=== PATIENT | female | born 1960 | race Caucasian/White ===

== ENCOUNTER 2018-02-18 09:02 | Emergency (ER) | payer MEDICAID, OTHER ==
[~2018-02-18] VITALS: Ht 175.3 cm; Wt 128.4 kg
[~2018-02-18 09:02] MED LIST: ALBU8HFA4 INH; AMOX-430 PO; ASPI-612 PO; ATEN50TA PO; CHRO1TAB6 PO; DIAZ5TAB PO; ERGO500040 PO; FLEXERIL PO; FOLI1TAB16 PO; HYDR-548 PO; MECL-102 PO; NORT50CA2 PO; OMEG1CAP18 PO; PROBIOTIC1 EACH PO; PROM5SYR PO; PSEU-231 PO; UBID1CAP PO; [UNRECOGNIZED DRUG - REMARK]
[2018-02-18] MEDS ORDERED: KETOROLAC TROMETHAMINE 30 MG INJ IVP ONE (09:45)
[2018-02-18] MEDS ORDERED: diphenhydrAMINE 50 MG/1 ML VIAL IV ONE (09:45)
[2018-02-18] MEDS ORDERED: IV NORMAL SALINE 1000 ML BAG IV ONE (09:45)
[2018-02-18] MEDS ORDERED: DIAZEPAM 2 MG TABLET PO ONE (09:45)
[2018-02-18] MEDS ORDERED: PROCHLORPERAZINE EDISYLATE 10 MG/2 ML VIAL IV ONE (09:45)
--- NOTE | 2018-02-18 10:06 | NUR ---
bossman 33, oj given and dr Logan made aware
--- NOTE | 2018-02-18 10:30 | NUR ---
multiple attemps to draw blood and insert IV unsuccessful
--- NOTE | 2018-02-18 10:41 | NUR ---
patient anxious, valium given po / still no IV access
[2018-02-18] MEDS ORDERED: DIAZEPAM 5 MG TABLET ONE (10:42)
[2018-02-18 10:51] LABS: BASOPHILS # (AUTO) 0.1 K/uL (0.0-8.0); BASOPHILS % (AUTO) 1.2 % (0.0-2.0); EOSINOPHILS # (AUTO) 0.2 K/uL (0.0-0.7); EOSINOPHILS % (AUTO) 1.5 % (0.0-7.0); HEMATOCRIT 46.2 % (31.2-41.9); LYMPHOCYTES # (AUTO) 3.9 K/uL (20.0-40.0); LYMPHOCYTES % (AUTO) 38.4 % (20.5-51.5); MEAN CORPUSCULAR HEMOGLOBIN 31.5 uug (24.7-32.8); MEAN CORPUSCULAR HGB CONC 35 g/dL (32.3-35.6); MEAN CORPUSCULAR VOLUME 90.9 fL (75.5-95.3); MONOCYTES # (AUTO) 0.7 K/uL (2.0-10.0); MONOCYTES % (AUTO) 6.6 % (0.0-11.0); NEUTROPHILS # (AUTO) 5.3 K/uL (1.8-8.9); NEUTROPHILS % (AUTO) 52.3 % (38.5-71.5); PLATELET COUNT (AUTO) 342 K/uL (179-408); RED BLOOD CELL COUNT(AUTO) 5.08 MIL/uL (3.63-4.92); WHITE BLOOD COUNT (AUTO) 10.1 K/uL (3.8-11.8)
[2018-02-18 10:55] LABS: CREATININE 0.8 mg/dL (0.6-1.3); POTASSIUM 3.9 mmol/L (3.5-5.1)
[2018-02-18 11:00] LABS: BILIRUBIN,DIRECT 0.1 mg/dL (0.0-0.2); BILIRUBIN,TOTAL 0.5 mg/dL (0.2-1.0); TOTAL PROTEIN, SERUM 8.2 g/dL (6.4-8.2)
--- NOTE | 2018-02-18 11:01 | NUR ---
back to room from radiology dept. head ct was done. upon arrival from Radiology, patient verbalized she was having TIA symptoms while in radiology dept
[2018-02-18] MEDS ORDERED: diphenhydrAMINE 50 MG/1 ML VIAL ONE (11:18)
[2018-02-18] MEDS ORDERED: PROCHLORPERAZINE EDISYLATE 10 MG/2 ML VIAL ONE (11:18)
[2018-02-18] MEDS ORDERED: KETOROLAC TROMETHAMINE 30 MG INJ ONE (11:19)
--- NOTE | 2018-02-18 12:32 | NUR ---
repeat accucheck 107. patient resting at present
[2018-02-18 14:23] VITALS: BP 125/72
--- NOTE | 2018-02-18 16:16 | NUR ---
ambulated to bathroom, then sent to waiting room to wait for her family to pick her up
== END 2018-02-18 16:17 | disposition home or self-care (01) ==
LOC: ER 09:02
DX: R07.9 Chest pain, unspecified (principal); R42 Dizziness and giddiness; R51 Headache; F41.9 Anxiety disorder, unspecified; I10 Essential (primary) hypertension; F17.200 Nicotine dependence, unspecified, uncomplicated; Z86.73 Personal history of transient ischemic attack (TIA), and cerebral infarction without residual deficits; Z88.2 Allergy status to sulfonamides; Z88.8 Allergy status to other drugs, medicaments and biological substances; Z91.048 Other nonmedicinal substance allergy status; Z88.7 Allergy status to serum and vaccine
CPT/HCPCS: 36415; 70030-TC; 70450; 71045; 85025; 85730; 93005; A4663; J0780; J1200; J1885

== ENCOUNTER 2018-06-03 19:02 | Emergency (ER) | payer MEDICAID ==
[~2018-06-03] VITALS: Ht 175.3 cm; Wt 128.8 kg
[~2018-06-03 19:02] MED LIST changes: +HYDR-4354 PO; -HYDR-548 PO
[2018-06-03] MEDS ORDERED: MORP15TA7 PO (19:34)
[2018-06-03] MEDS ORDERED: ASPI-605 PO (19:34)
[2018-06-03] MEDS ORDERED: DOCU250C14 PO (19:34)
[2018-06-03] MEDS ORDERED: TRAZ-182 PO (19:34)
[2018-06-03] MEDS ORDERED: PROM25TA15 PO (19:34)
[2018-06-03] MEDS ORDERED: TIZA2CAP7 PO (19:34)
[2018-06-03] MEDS ORDERED: TIZA4TAB4 PO (19:34)
[2018-06-03] MEDS ORDERED: CHOL20004 PO (19:34)
[2018-06-03 21:05] LABS: *BILIRUBIN,URIN NEGATIVE (NEGATIVE); *BLOOD, URINE Trace-lysed (NEGATIVE); *CLARITY,URINE CLEAR (CLEAR); *COLOR,URINE YELLOW (YELLOW); *KETONES,URINE NEGATIVE (NEGATIVE); *UROBILINOGEN,URINE 0.2 E.U./dl (NORMAL); LEUKOCYTE ESTERASE ,URINE NEGATIVE (NEGATIVE); NITRITE, URINE NEGATIVE (NEGATIVE); PH,URINE 5.5 (5.0-8.0); UGLUCOSE NEGATIVE (NEGATIVE)
[2018-06-03 21:17] LABS: BACTERIA,URINE FEW /HPF (NONE SEEN); RBC,URINE 0-3 /HPF (0-3); SQUAMOUS EPITHELIAL CELL,UR FEW /HPF (NONE SEEN); WBC,URINE 0-3 /HPF (0-3)
[2018-06-03] MEDS ORDERED: HYDROCODONE/APAP 10-325 MG TABLET ONE (21:56)
[2018-06-03] MEDS: HYDROCODONE/APAP 10-325 MG TABLET PO ONE (21:58)
[2018-06-03] MEDS: PROMETHAZINE HCL 25 MG TABLET PO PRN (21:58)
--- NOTE | 2018-06-04 00:37 | NUR ---
Patient discharged to home in stable conditon. Written and verbal after care instructions given. Patient verbalizes understanding of instructions.
== END 2018-06-04 00:38 | disposition home or self-care (01) ==
LOC: ER 19:05
DX: M75.21 Bicipital tendinitis, right shoulder (principal); K76.0 Fatty (change of) liver, not elsewhere classified; R60.9 Edema, unspecified; N31.9 Neuromuscular dysfunction of bladder, unspecified; I10 Essential (primary) hypertension; F17.200 Nicotine dependence, unspecified, uncomplicated; Z86.73 Personal history of transient ischemic attack (TIA), and cerebral infarction without residual deficits; Z90.49 Acquired absence of other specified parts of digestive tract; Z88.8 Allergy status to other drugs, medicaments and biological substances; Z88.2 Allergy status to sulfonamides; Z91.041 Radiographic dye allergy status; Z79.82 Long term (current) use of aspirin; Z79.899 Other long term (current) drug therapy
CPT/HCPCS: 87086; A4663

== ENCOUNTER 2018-08-23 17:46 | Emergency (ER) | payer MEDICAID ==
[~2018-08-23] VITALS: Ht 175.3 cm; Wt 113.4 kg
[~2018-08-23 17:46] MED LIST changes: -ALBU8HFA4 INH; -AMOX-430 PO; +ASPI-605 PO; -ASPI-612 PO; +CHOL20004 PO; -CHRO1TAB6 PO; +DOCU250C14 PO; -ERGO500040 PO; -FLEXERIL PO; +MORP15TA7 PO; -NORT50CA2 PO; +PROM25TA15 PO; -PROM5SYR PO; -PSEU-231 PO; +TIZA2CAP7 PO; +TIZA4TAB5 PO; +TRAZ-182 PO; -[UNRECOGNIZED DRUG - REMARK]
[2018-08-23] MEDS ORDERED: PROMETHAZINE VC PO (18:07)
[2018-08-23] MEDS ORDERED: ALBU8.5H8 IH (18:07)
--- NOTE | 2018-08-23 18:14 | NUR ---
PT A/OX4, PRESENTS TO THE ER C/O SOB X 1 MONTH, BUT HAS BEEN WORSENING. PT WAS SEEN BY HER PCP YESTERDAY (08/22/18). PT DOES NOT APPEAR TO BE IN ANY APPARENT DISTRESS AT THIS TIME. MULTIPLE COMPLAINTS: COUGH, THROAT PAIN, BILATERAL EAR PAIN. PT DENIES C/P, DIZZINESS, HEADACHE, DIZZINESS.
--- NOTE | 2018-08-23 18:52 | NUR ---
JAYLEN MURRIETA AT BEDSIDE FOR MSE.
[2018-08-23] MEDS ORDERED: ALBUTEROL SULFATE 2.5 MG/3 ML NEBU NEB ONE (19:15)
[2018-08-23] MEDS ORDERED: IPRATROPIUM BROMIDE 0.5 MG/2.5 ML NEBU NEB ONE (19:15)
[2018-08-23] MEDS ORDERED: IV NORMAL SALINE 1000 ML BAG IV ONE (19:15)
[2018-08-23] MEDS ORDERED: IPRATROPIUM BROMIDE 0.5 MG/2.5 ML NEBU ONE (19:19)
[2018-08-23] MEDS ORDERED: ALBUTEROL SULFATE 2.5 MG/3 ML NEBU ONE (19:19)
--- NOTE | 2018-08-23 19:25 | NUR ---
RT AT BEDSIDE.
[2018-08-23 19:30] LABS: BASOPHILS % (AUTO) 0.6 % (0.0-2.0); EOSINOPHILS # (AUTO) 0.1 K/uL (0.0-0.7); EOSINOPHILS % (AUTO) 1.5 % (0.0-7.0); HEMATOCRIT 39.6 % (31.2-41.9); HEMOGLOBIN 13.7 g/dL (10.9-14.3); LYMPHOCYTES # (AUTO) 2.6 K/uL (20.0-40.0); LYMPHOCYTES % (AUTO) 31.8 % (20.5-51.5); MEAN CORPUSCULAR HEMOGLOBIN 30.4 uug (24.7-32.8); MEAN CORPUSCULAR HGB CONC 35 g/dL (32.3-35.6); MEAN CORPUSCULAR VOLUME 87.7 fL (75.5-95.3); MONOCYTES # (AUTO) 0.7 K/uL (2.0-10.0); MONOCYTES % (AUTO) 8.3 % (0.0-11.0); NEUTROPHILS # (AUTO) 4.7 K/uL (1.8-8.9); NEUTROPHILS % (AUTO) 57.8 % (38.5-71.5); PLATELET COUNT (AUTO) 354 K/uL (179-408); RED BLOOD CELL COUNT(AUTO) 4.51 MIL/uL (3.63-4.92); WHITE BLOOD COUNT (AUTO) 8.1 K/uL (3.8-11.8)
[2018-08-23 19:37] LABS: CREATININE 0.7 mg/dL (0.6-1.3); POTASSIUM 3.6 mmol/L (3.5-5.1)
--- NOTE | 2018-08-23 20:17 | NUR ---
JAYLEN MURRIETA AT BEDSIDE FOR PT UPDATE.
--- NOTE | 2018-08-23 20:30 | NUR ---
Patient discharged to home in stable conditon. Written and verbal after care instructions given. Patient verbalizes understanding of instructions. PT D/C W/ ALL BELONGINGS. PT SELF-AMBULATED W/O DIFFICULTY. 22G IV ACCESS IN L FOREARM REMOVED PRIOR TO D/C - INNER CANNULA INTACT.
[2018-08-23 20:32] VITALS: BP 126/60
== END 2018-08-23 20:34 | disposition home or self-care (01) ==
LOC: ER 17:50
DX: J40 Bronchitis, not specified as acute or chronic (principal); E86.0 Dehydration; I10 Essential (primary) hypertension; F17.200 Nicotine dependence, unspecified, uncomplicated; Z86.73 Personal history of transient ischemic attack (TIA), and cerebral infarction without residual deficits; Z90.49 Acquired absence of other specified parts of digestive tract; Z90.89 Acquired absence of other organs; Z88.2 Allergy status to sulfonamides; Z91.048 Other nonmedicinal substance allergy status; Z88.8 Allergy status to other drugs, medicaments and biological substances; Z79.899 Other long term (current) drug therapy; Z79.82 Long term (current) use of aspirin
CPT/HCPCS: 36415; 71045; 85025; 85730; 86403; 87070; A4663; J3590; J7030

== ENCOUNTER 2018-12-06 11:02 | Emergency (ER) | payer MEDICAID ==
[~2018-12-06] VITALS: Ht 175.3 cm; Wt 113.4 kg
[~2018-12-06 11:02] MED LIST changes: +ALBU8.5H8 IH; -MORP15TA7 PO; +PROMETHAZINE VC PO; +TIZA4TAB4 PO; -TIZA4TAB5 PO
[2018-12-06] MEDS ORDERED: HYDROCODONE/APAP 10-325 MG TABLET PO ONE (12:00)
[2018-12-06] MEDS ORDERED: HYDROCODONE/APAP 5-325MG TABLET ONE (12:01)
[2018-12-06] MEDS ORDERED: HYDROCODONE/APAP 5-325MG TABLET PO ONE (13:00)
--- NOTE | 2018-12-06 13:06 | NUR ---
Patient discharged to home in stable conditon. Written and verbal after care instructions given. Patient verbalizes understanding of instructions.pt walks in steady gait.
[2018-12-06 13:08] VITALS: BP 131/81
== END 2018-12-06 13:09 | disposition home or self-care (01) ==
LOC: ER 11:02
DX: S63.501A Unspecified sprain of right wrist, initial encounter (principal); M54.2 Cervicalgia; I10 Essential (primary) hypertension; G89.29 Other chronic pain; M54.9 Dorsalgia, unspecified; F17.200 Nicotine dependence, unspecified, uncomplicated; Z90.49 Acquired absence of other specified parts of digestive tract; Z88.2 Allergy status to sulfonamides; Z88.8 Allergy status to other drugs, medicaments and biological substances; Z79.82 Long term (current) use of aspirin; Z79.899 Other long term (current) drug therapy; X58.XXXA Exposure to other specified factors, initial encounter; Y93.89 Activity, other specified; Y92.89 Other specified places as the place of occurrence of the external cause; Y99.8 Other external cause status
CPT/HCPCS: 73110; 73130; A4663

== ENCOUNTER 2019-03-18 06:47 | Emergency (ER) | payer MEDICAID ==
[~2019-03-18] VITALS: Ht 175.3 cm; Wt 117.9 kg
[~2019-03-18 06:47] MED LIST changes: -TIZA4TAB4 PO; +TIZA4TAB5 PO
--- NOTE | 2019-03-18 06:58 | NUR ---
patient brouht in by ambulance from home. patient complain of headache, with BP at 170/100. After assessment, patient vital signs are as follows: BP 163/101, HR 80, spO2 95%. ER MD has seen patient.
[2019-03-18] MEDS ORDERED: PROCHLORPERAZINE EDISYLATE 10 MG/2 ML VIAL ONE (07:05)
[2019-03-18] MEDS ORDERED: HYDROCODONE/APAP 5-325MG TABLET ONE (07:05)
[2019-03-18] MEDS: IV NORMAL SALINE 1000 ML BAG IV ONE (07:09)
[2019-03-18] MEDS: PROCHLORPERAZINE EDISYLATE 10 MG/2 ML VIAL IV ONE (07:09)
[2019-03-18] MEDS: HYDROCODONE/APAP 5-325MG TABLET PO ONE (07:10)
--- NOTE | 2019-03-18 07:13 | NUR ---
prior to adminstration of PO medication norco 5/325. Swallow evaluation was done and patient passed.
[2019-03-18 07:18] LABS: BASOPHILS # (AUTO) 0.1 K/uL (0.0-8.0); BASOPHILS % (AUTO) 0.8 % (0.0-2.0); EOSINOPHILS # (AUTO) 0.2 K/uL (0.0-0.7); EOSINOPHILS % (AUTO) 2.2 % (0.0-7.0); HEMATOCRIT 44.9 % (31.2-41.9); HEMOGLOBIN 15.3 g/dL (10.9-14.3); LYMPHOCYTES # (AUTO) 3.1 K/uL (20.0-40.0); LYMPHOCYTES % (AUTO) 29.1 % (20.5-51.5); MEAN CORPUSCULAR HEMOGLOBIN 29.8 uug (24.7-32.8); MEAN CORPUSCULAR HGB CONC 34 g/dL (32.3-35.6); MEAN CORPUSCULAR VOLUME 87.7 fL (75.5-95.3); MONOCYTES % (AUTO) 9.3 % (0.0-11.0); NEUTROPHILS # (AUTO) 6.2 K/uL (1.8-8.9); NEUTROPHILS % (AUTO) 58.6 % (38.5-71.5); PLATELET COUNT (AUTO) 357 K/uL (179-408); RED BLOOD CELL COUNT(AUTO) 5.12 MIL/uL (3.63-4.92); WHITE BLOOD COUNT (AUTO) 10.6 K/uL (3.8-11.8)
[2019-03-18 07:22] LABS: CREATININE 0.8 mg/dL (0.6-1.3); POTASSIUM 3.6 mmol/L (3.5-5.1)
[2019-03-18 07:56] LABS: BILIRUBIN,DIRECT 0.1 mg/dL (0.0-0.2); BILIRUBIN,TOTAL 0.3 mg/dL (0.2-1.0); TOTAL PROTEIN, SERUM 8.6 g/dL (6.4-8.2)
--- NOTE | 2019-03-18 08:48 | NUR ---
pt was d/c'd to home after dr Somers re-evaluation. d/c instructions given to the pt.
[2019-03-18 08:49] VITALS: BP 141/70
== END 2019-03-18 08:50 | disposition home or self-care (01) ==
LOC: ER 06:50
DX: R51 Headache (principal); I10 Essential (primary) hypertension; F41.9 Anxiety disorder, unspecified; F32.9 Major depressive disorder, single episode, unspecified; F17.200 Nicotine dependence, unspecified, uncomplicated; Z86.73 Personal history of transient ischemic attack (TIA), and cerebral infarction without residual deficits; Z88.5 Allergy status to narcotic agent; Z88.8 Allergy status to other drugs, medicaments and biological substances; Z88.2 Allergy status to sulfonamides; Z79.899 Other long term (current) drug therapy; Z91.041 Radiographic dye allergy status; Z91.048 Other nonmedicinal substance allergy status; Z79.82 Long term (current) use of aspirin
CPT/HCPCS: 36415; 70450; 71045; 80048; 80076; 83690; 84484; 85025; 85730; 93005; 96361; 96374; 99284; J0780; 70030-TC; A4663; J7030

== ENCOUNTER 2021-01-26 21:55 | Emergency (ER) | payer MEDICAID ==
[~2021-01-26] VITALS: Ht 172.7 cm; Wt 117.0 kg
[~2021-01-26 21:55] MED LIST changes: -FOLI1TAB16 PO; +FOLI1TAB94 PO; -MECL-102 PO; +MECL-159 PO
[2021-01-26 22:38] LABS: HEMATOCRIT 41.3 % (31.2-41.9); MEAN CORPUSCULAR HEMOGLOBIN 30.6 uug (24.7-32.8); MEAN CORPUSCULAR VOLUME 89.9 fL (75.5-95.3); PLATELET COUNT (AUTO) 324 K/uL (179-408)
[2021-01-26 22:46] LABS: CREATININE 0.9 mg/dL (0.6-1.3)
--- NOTE | 2021-01-27 02:01 | NUR ---
Patient discharged to home in stable condition. Written and verbal after care instructions given. Patient verbalizes understanding of instructions. Stressed follow up or return to ER for worsening s/s. Patient wheeled out via wheelchair, but is able to transfer from bed to w/c with slight assistance, has steady gait. Patient has called a rideshare to come take her home tonight.
[2021-01-27 03:20] VITALS: BP 135/93
== END 2021-01-27 02:10 | disposition home or self-care (01) ==
LOC: ER 21:58 → MERGE 21:58 → ER 01-27 02:10
DX: T40.2X1A Poisoning by other opioids, accidental (unintentional), initial encounter (principal); T40.411A Poisoning by fentanyl or fentanyl analogs, accidental (unintentional), initial encounter; Y92.039 Unspecified place in apartment as the place of occurrence of the external cause; R47.81 Slurred speech; G90.523 Complex regional pain syndrome I of lower limb, bilateral; Z86.73 Personal history of transient ischemic attack (TIA), and cerebral infarction without residual deficits; M54.9 Dorsalgia, unspecified; M54.30 Sciatica, unspecified side; M79.605 Pain in left leg; M79.604 Pain in right leg; I10 Essential (primary) hypertension; R94.31 Abnormal electrocardiogram [ECG] [EKG]; Z87.19 Personal history of other diseases of the digestive system; Z88.2 Allergy status to sulfonamides; Z88.8 Allergy status to other drugs, medicaments and biological substances; Z91.041 Radiographic dye allergy status; F41.9 Anxiety disorder, unspecified; Z79.899 Other long term (current) drug therapy
CPT/HCPCS: 36415; 70030-TC; 70450; 71045; 85025; 85730; 93005; A4663

== ENCOUNTER 2021-08-20 06:38 | Inpatient (IN) | payer MEDICAID ==
[~2021-08-20] VITALS: Ht 175.3 cm; Wt 129.3 kg
[2021-08-20] MEDS ORDERED: AMIT50TA3 PO (06:54)
[2021-08-20] MEDS ORDERED: IV NORMAL SALINE 1000 ML BAG IV ONE (07:00)
--- NOTE | 2021-08-20 07:13 | NUR ---
PT IS IN ROOM #2A. DR GAMBOA EVALUATED THE PT.
[2021-08-20 08:00] LABS: HEMATOCRIT 38.8 % (31.2-41.9); MEAN CORPUSCULAR HEMOGLOBIN 30.2 uug (24.7-32.8); MEAN CORPUSCULAR VOLUME 89.5 fL (75.5-95.3); PLATELET COUNT (AUTO) 295 K/uL (179-408)
[2021-08-20 08:06] LABS: CARBON DIOXIDE 30 mmol/L (21-32); CHLORIDE 98 mmol/L (98-107); CREATININE 0.7 mg/dL (0.6-1.3); GLUCOSE 105 mg/dL (74-106); POTASSIUM 3.7 mmol/L (3.5-5.1); UREA NITROGEN, BLOOD 31 mg/dL (7-18)
[2021-08-20 08:14] LABS: ALANINE AMINOTRANSFERASE 49 U/L (14-59); ALKALINE PHOSPHATASE 91 U/L (50-136); ASPARTATE AMINOTRANSFERASE 158 U/L (15-37); BILIRUBIN,DIRECT 0.1 mg/dL (0.0-0.2); BILIRUBIN,TOTAL 0.5 mg/dL (0.2-1.0); TOTAL PROTEIN, SERUM 7.7 g/dL (6.4-8.2)
--- NOTE | 2021-08-20 08:16 | NUR ---
ER registration/admitting staff Diana notified re: PLAN TO ADMIT per Dr Manzo, pending authorization from patient's insurance@this time
[2021-08-20 08:35] LABS: THYROID STIMULATING HORMONE 1.344 mIU/mL (0.358-3.740)
[2021-08-20] MEDS ORDERED: HYDROCODONE/APAP 5-325MG TABLET PO ONE (09:15)
[2021-08-20] MEDS ORDERED: HYDROCODONE/APAP 5-325MG TABLET ONE (09:23)
[2021-08-20 11:06] LABS: *BILIRUBIN,URIN NEGATIVE (NEGATIVE); *BLOOD, URINE NEGATIVE (NEGATIVE); *CLARITY,URINE CLEAR (CLEAR); *COLOR,URINE YELLOW (YELLOW); *KETONES,URINE NEGATIVE (NEGATIVE); *UROBILINOGEN,URINE 0.2 E.U./dl (NORMAL); LEUKOCYTE ESTERASE ,URINE NEGATIVE (NEGATIVE); NITRITE, URINE NEGATIVE (NEGATIVE); PH,URINE 5.5 (5.0-8.0); UGLUCOSE NEGATIVE (NEGATIVE)
--- NOTE | 2021-08-20 11:09 | NUR ---
REPORT WAS GIVEN TO RN M/S. PT WAS TRANSFERED TO ROOM #314.
--- NOTE | 2021-08-20 11:15 | NUR ---
patient arrived to unit, patient is alert and oriented x3-4 able to make needs none. patient states feeling "very weak and tired" fell asleep twice during admission process. patient with mild weakness to bilateral upper and lower extremity, was able to transfer from w/c to bed with assistance. rr are even and non-labored, no episodes of sob noted, patient states she has a cough, no cough noted at this time, lungs clear bilateral. gi sounds present to all 4 quadrants, states she takes around the clock pain medication and struggles with constipation. patient noted with +1 pitting edema to bilateral lower extremities. v/s wnl, at this time, side rails up x2, call light within reach patient oriented onto unit. all questions answered.
[2021-08-20 12:00] VITALS: BP 110/64
[2021-08-20 16:00] VITALS: BP 130/82
[2021-08-20] MEDS ORDERED: MAGNESIUM HYDROXIDE 30 ML LIQUID UDC PO PRN (16:15)
[2021-08-20] MEDS ORDERED: TEMAZEPAM 15 MG CAPSULE PO PRN (16:15)
[2021-08-20] MEDS ORDERED: HYDROCODONE/APAP 5-325MG TABLET PO PRN (16:15)
[2021-08-20] MEDS ORDERED: ONDANSETRON 4 MG/2 ML VIAL IV PRN (16:15)
[2021-08-20] MEDS ORDERED: ACETAMINOPHEN 325 MG TABLET PO PRN (16:15)
[2021-08-20 20:19] VITALS: BP 122/57
[2021-08-20] MEDS: HYDROCODONE/APAP 10-325 MG TABLET PO PRN (22:04)
[2021-08-20] MEDS: POTASSIUM CHLORIDE 20 MEQ in IV 1/2NS 1000 ML 1,000 ML IV PRN (22:05)
--- NOTE | 2021-08-20 22:45 | NUR ---
Patient in resting in bed awake and able to make needs known.IV patent and intact on left upper arm 18 g with IVF infusing well.Assisted patient to bathroom .Refused to use bedside commode at this time.Voided well. Seen and examined by . with new order to change norco to . Patient c/o gen pain.[place] given with good effect.Call light with in reach .
[2021-08-21] MEDS: DIAZEPAM 5 MG TABLET PO PRN ×3 (01:58→21:33)
[2021-08-21 04:00] VITALS: BP 138/53
[2021-08-21] MEDS: PANTOPRAZOLE SODIUM 40 MG TABLET.DR PO SCH (06:13)
[2021-08-21 07:17] LABS: HEMATOCRIT 36.9 % (31.2-41.9); MEAN CORPUSCULAR HEMOGLOBIN 30.7 uug (24.7-32.8); MEAN CORPUSCULAR VOLUME 89.2 fL (75.5-95.3); PLATELET COUNT (AUTO) 320 K/uL (179-408)
--- NOTE | 2021-08-21 08:00 | NUR ---
Pt is in no acute distress. PT alert and oriented x 4. Pt on commode. Discussed plan of care with pt re: fall, pain and constipation management. Pt agreeable with plan of care. Awaiting midline insertion.
[2021-08-21 08:06] LABS: BILIRUBIN,TOTAL 0.5 mg/dL (0.2-1.0); CREATININE 0.8 mg/dL (0.6-1.3); MAGNESIUM 2.3 mg/dL (1.8-2.4); PHOSPHOROUS 3.5 mg/dL (2.5-4.9); POTASSIUM 3.6 mmol/L (3.5-5.1); TOTAL PROTEIN, SERUM 7.8 g/dL (6.4-8.2)
[2021-08-21] MEDS: CULTURELLE CAPSULE PO SCH (08:51)
[2021-08-21] MEDS: OMEGA-3 FATTY ACIDS/FISH OIL CAPSULE PO SCH (08:51)
[2021-08-21] MEDS: DOCUSATE SODIUM 250 MG CAPSULE PO SCH (08:51)
[2021-08-21] MEDS: FOLIC ACID 1 MG TABLET PO SCH (08:51)
[2021-08-21] MEDS ORDERED: ASPIRIN EC 81 MG TABLET.DR PO SCH (09:00)
[2021-08-21] MEDS ORDERED: LACTOBACILLUS RHAMNOSUS GG PO SCH (09:00)
--- NOTE | 2021-08-21 10:00 | NUR ---
Midline inserted on left forearm flushing well. Pt had multiple request of medications to be restarted - promethazine, meclizine, colace, valium, norco 10/325. Awaiting decision from MD to continue home meds.
[2021-08-21] MEDS: HYDROCODONE/APAP 10-325 MG TABLET PO PRN ×3 (10:26→20:43)
[2021-08-21 11:57] VITALS: BP 123/79
[2021-08-21] MEDS ORDERED: ONDANSETRON 4 MG/2 ML VIAL IV PRN (12:45)
[2021-08-21] MEDS ORDERED: PROMETHAZINE HCL 25 MG TABLET PO PRN (13:00)
--- NOTE | 2021-08-21 14:17 | NUR ---
Per dr heck medications pt requested is approved. PT seen by DR HECK.
[2021-08-21] MEDS: MECLIZINE HCL 25 MG TABLET PO PRN (14:52)
[2021-08-21 16:00] VITALS: BP 133/68
[2021-08-21] MEDS: POTASSIUM CHLORIDE 20 MEQ in IV 1/2NS 1000 ML 1,000 ML IV PRN (18:08)
--- NOTE | 2021-08-21 18:29 | NUR ---
applied z guard on abd fold redness. PT had x 3 Large BM stool. PT is in no acute distress. Call light is within reach.
--- NOTE | 2021-08-21 19:30 | NUR ---
Received pt awake,alert and orientedx4. Pt in no acute distress. Iv intact. Safety and comfort provided. Pt stated she is in pain all over her body.. Will continue to monitor.
[2021-08-21 20:00] VITALS: BP 128/63
--- NOTE | 2021-08-21 20:43 | NUR ---
[place] 10-325 prn given to pt for generalized pain. Pt tolerated it well.
--- NOTE | 2021-08-21 21:23 | NUR ---
Nystatin powder and Lotrisone cream ordered by Dr. Benitez for pt redness on her abdominal fold.
[2021-08-21] MEDS ORDERED: NYSTATIN POWDER 15 GM BOTTLE TOP PRN (21:30)
[2021-08-21] MEDS ORDERED: CLOTRIMAZOLE/BETAMET DIPROP CREAM 15 GM TUBE TOP PRN (21:30)
--- NOTE | 2021-08-21 21:33 | NUR ---
Valium 10mg given at 2133h for anxiety. Pt tolerated it well. Will continue to monitor.
--- NOTE | 2021-08-21 22:00 | NUR ---
Pt [place] effective on the pt. Pt stated it felt better. Pt Valium effective anxiety lessen and calmer now. Will continue to monitor.
[2021-08-22] VITALS: BP 120/66
[2021-08-22] MEDS: HYDROCODONE/APAP 10-325 MG TABLET PO PRN ×4 (03:55→20:56)
[2021-08-22 04:00] VITALS: BP 103/53
[2021-08-22] MEDS: DIAZEPAM 5 MG TABLET PO PRN (04:54)
[2021-08-22] MEDS ORDERED: NYSTATIN POWDER 15 GM BOTTLE TOP PRN (05:45)
--- NOTE | 2021-08-22 05:50 | NUR ---
Pt at 0355h was given [place] 1 tablet 10-325 mg prn for 10/10 pain scale for her generalized pain. Pt tolerated it well. After an hour pt stating she still in pain and she might have fracture on her hips and back. Pt given Valium 10 mg at 0454h as per pt request . Pt stated that she is anxious and she said that she is getting this Valium four times a day. Told pt that she is getting Valium BID based on what we have in our medication list. After 30 minutes pt is calmer. Put hotpacks on pt lower back.
--- NOTE | 2021-08-22 06:01 | NUR ---
Pt slept intermittently. Pt in no acute distress. Pt vital signs within normal limit. Pain management needed. PRN medications given. Told pt to tell her concern regarding her medications to the doctor. Safety and comfort provided. Will endorse to incoming nurse for continuity of care.
[2021-08-22] MEDS: PANTOPRAZOLE SODIUM 40 MG TABLET.DR PO SCH (06:06)
[2021-08-22] MEDS: POTASSIUM CHLORIDE 20 MEQ in IV 1/2NS 1000 ML 1,000 ML IV PRN (06:15)
[2021-08-22 06:47] LABS: HEMATOCRIT 34.7 % (31.2-41.9); MEAN CORPUSCULAR HEMOGLOBIN 30.2 uug (24.7-32.8); MEAN CORPUSCULAR VOLUME 88.5 fL (75.5-95.3); PLATELET COUNT (AUTO) 295 K/uL (179-408)
[2021-08-22 07:03] LABS: CREATININE 0.7 mg/dL (0.6-1.3); MAGNESIUM 2.2 mg/dL (1.8-2.4); PHOSPHOROUS 3.5 mg/dL (2.5-4.9); POTASSIUM 3.8 mmol/L (3.5-5.1)
--- NOTE | 2021-08-22 07:30 | NUR ---
Patient asleep in bed, easily arousable. AO x 4. ANTONIO 22G flushing, patent, and intact. L F/A midline flushing patent, and intact. Patient sinus rhythm on the monitor. Heart rate in the 80s. Nasal cannula on at 3L. No acute distress at the moment. No shortness of breath. Safety precautions in place. Will continue to monitor.
[2021-08-22 08:00] VITALS: BP 136/51
[2021-08-22] MEDS: ASPIRIN EC 81 MG TABLET.DR PO SCH ×2 (08:17→20:57)
[2021-08-22] MEDS: DOCUSATE SODIUM 250 MG CAPSULE PO SCH ×2 (08:17→20:56)
[2021-08-22] MEDS: OMEGA-3 FATTY ACIDS/FISH OIL CAPSULE PO SCH (08:17)
[2021-08-22] MEDS: CULTURELLE CAPSULE PO SCH (08:18)
[2021-08-22] MEDS: FOLIC ACID 1 MG TABLET PO SCH (08:18)
[2021-08-22] MEDS: CLOTRIMAZOLE/BETAMET DIPROP CREAM 15 GM TUBE TOP SCH ×2 (10:49→20:59)
[2021-08-22 12:15] VITALS: BP 149/59
[2021-08-22 15:28] VITALS: BP 145/88
--- NOTE | 2021-08-22 19:30 | NUR ---
Received pt awake,alert and orientedx4. Pt in no acute distress. Iv intact. Safety and comfort provided. Will continue to monitor.
[2021-08-22] MEDS ORDERED: DIAZEPAM 10 MG TABLET PO PRN (20:00)
[2021-08-22 20:44] VITALS: BP 148/97
[2021-08-22] MEDS: ATORVASTATIN 20 MG TABLET PO SCH ×2 (20:56→21:00)
--- NOTE | 2021-08-22 20:56 | NUR ---
[place] 10-325mg 1 tablet prn given to pt for pain scale 10/10 . Complaint of generalized pain. Pt tolerated it well. Pt asking for her other prn medications and insisting on her Atenolol medication. Told pt that I will ask the doctor regarding her Atenolol. Pt refused her Lipitor medication stating she doesn't take it.
--- NOTE | 2021-08-22 21:15 | NUR ---
at 2104 notify regarding pt asking for her Atenolol. Dr. Benitez ordered at Atenolol 25 mg q12h.
[2021-08-22] MEDS: MECLIZINE HCL 25 MG TABLET PO PRN (22:25)
--- NOTE | 2021-08-22 22:25 | NUR ---
Pt given Antivert 25mg prn, Phenergan 25mg prn and Valium 10mg prn as per pt request. Pt showing anxiety which shows she needed the Valium. Pt tolerated it well. Pt stating she will go home tomorrow and she has chest pain. Pt vital signs was rechecked and put on heart monitor to assess. Pt on sinus rhythm.Pt vital signs within normal limit. Will continue to monitor.
[2021-08-22] MEDS: ATENOLOL 25 MG TABLET PO SCH (22:26)
[2021-08-23] MEDS: HYDROCODONE/APAP 10-325 MG TABLET PO PRN ×2 (03:33→09:08)
--- NOTE | 2021-08-23 04:34 | NUR ---
at 0333h [place] 10-325 mg prn given to pt for 10/100 pain scale of generalized pain. Pt tolerated it well. After an hour norco medication effective. Will continue to monitor.
[2021-08-23 04:35] VITALS: BP 128/72
--- NOTE | 2021-08-23 06:01 | NUR ---
Pt slept intermittently. Pt in no acute distress. Pt IV intact. Pt turned and repositioned. Prescribed medication given and pt tolerated it well. Pain management needed. Pt on 3l nasal Cannula.Pt vital signs within normal limit. . Safety and comfort provided. Will endorse to incoming nurse for continuity of care.
[2021-08-23] MEDS: PANTOPRAZOLE SODIUM 40 MG TABLET.DR PO SCH (06:35)
--- NOTE | 2021-08-23 06:38 | NUR ---
Pt refused Protonix. Pt in no acute distress . Heart monitor taken out. Will endorse to incoming nurse for continuity of care.
--- NOTE | 2021-08-23 07:57 | NUR ---
RECEIVED PATIENT IN BED ASLEEP BUT IS EASILY AROUSABLE ON ROUNDS NO S/S OF PAIN OR DISCOMFORTS AT THIS TIME REMAIN ON O2 AT 2L/M WITH NO SOB AT THIS TIME.CALL LIGHTS AND PERSONAL BELONGINGS ARE WITHIN EASY REACH MADE COMFORTABLE AND WILL CONTINUE TO OBSERVE.
[2021-08-23] MEDS: OMEGA-3 FATTY ACIDS/FISH OIL CAPSULE PO SCH (08:57)
[2021-08-23] MEDS: FOLIC ACID 1 MG TABLET PO SCH (08:57)
[2021-08-23] MEDS: ASPIRIN EC 81 MG TABLET.DR PO SCH (08:57)
[2021-08-23] MEDS: CULTURELLE CAPSULE PO SCH (08:57)
[2021-08-23] MEDS: DOCUSATE SODIUM 250 MG CAPSULE PO SCH (08:57)
[2021-08-23] MEDS: ATENOLOL 25 MG TABLET PO SCH (08:58)
[2021-08-23] MEDS: CLOTRIMAZOLE/BETAMET DIPROP CREAM 15 GM TUBE TOP SCH (09:08)
--- NOTE | 2021-08-23 11:00 | NUR ---
PATIENT SEEN AND EXAMINED BY DR GEORGE ESTRADA WITH ORDER TO DISCHARGE PATIENT HOME TODAY AND NOTED.
--- NOTE | 2021-08-23 12:33 | NUR ---
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
--- NOTE | 2021-08-23 13:18 | NUR ---
Clinical Social Work Note SW consult was requested to discuss discharge with patient. SW met with 60 year old female who is alert and oriented x4. Patient presents with a depressed mood and congruent affect. SW discussed with patient discharge plans. YOSELIN informed patient of doctor recommending SNF or 24 hour caregiver. Patient stated that she does not want to go to a SNF due to her compromised immune system. Per patient, "Going for one week or two is not worth the risk for me." SW asked patient about the option of getting access to a 24 hour caregiver. Per patient, she does not have the financial means for a 24 hour caregiver. Patient stated that the doctor told her today,"if I go to the SNF, I will not get cured." Patient stated she understood the recommendation, but at this moment she is refusing. SW informed the doctor and nurse outreach case manager.
--- NOTE | 2021-08-23 14:09 | NUR ---
PATIENT IS FOR DISCHARGE TODAY STATED DOES NOT WANT TO GO TO SNF WILL PREFER TO GO HOME INSTEAD ATTEMPTED TO TAKE PHOTOS OF HER RED AREAS ON THE LEFT AND RIGHT UNDER BREAST AND BENEATH ABDOMINAL FOLDS PATIENT REFUSED STATED DOES NOT WANT PICTURES TAKEN OF HER PATIENTS RIGHT TO REFUSE RESPECTED.
[2021-08-23 15:59] VITALS: BP 144/87
--- NOTE | 2021-08-23 16:30 | NUR ---
PATIENT STATED THAT HER SON JANE IS ON HIS WAY YO PICK HER UP MID LINE REMOVED DISCHARGE INSTRUCTIONS GIVEN PATIENT INSTRUCTED TO CONTINUE MEDICATIONS ORDERED AND CALL FOR A FOLLOW UP APPOINTMENT WITH HER PRIMARY DOCTOR WITHIN THE NEXT ONE TO TWO WEEKS AND SHE EXPRESSED UNDERSTANDING.
--- NOTE | 2021-08-23 16:50 | NUR ---
PATIENTS SON JANE HER AND PATIENT TAKEN DOWN BY CHAIR IN SATISFACTORY CONDITION .
== END 2021-08-23 16:50 | disposition home or self-care (01) | DRG 351 ==
LOC: ER 06:40 → MEDSURG3 10:00 → TELE3 08-21 04:32 → MEDSURG3 08-22 09:10
PROVIDERS: ADMIT Internal Medicine; ATTEND Internal Medicine
PROC: 05HC33Z Insertion of Infusion Device into Left Basilic Vein, Percutaneous Approach (ICD-10-PCS; principal; 2021-08-21)
DX: M62.82 Rhabdomyolysis (principal); D68.59 Other primary thrombophilia; I11.9 Hypertensive heart disease without heart failure; I67.2 Cerebral atherosclerosis; M25.511 Pain in right shoulder; E86.0 Dehydration; G50.0 Trigeminal neuralgia; Z74.09 Other reduced mobility; E66.01 Morbid (severe) obesity due to excess calories; Z68.41 Body mass index [BMI] 40.0-44.9, adult; J98.11 Atelectasis; R62.7 Adult failure to thrive; Z80.9 Family history of malignant neoplasm, unspecified; G89.4 Chronic pain syndrome; N80.9 Endometriosis, unspecified; M51.17 Intervertebral disc disorders with radiculopathy, lumbosacral region; R10.32 Left lower quadrant pain; Z85.819 Personal history of malignant neoplasm of unspecified site of lip, oral cavity, and pharynx; Z20.822 Contact with and (suspected) exposure to COVID-19; Z82.49 Family history of ischemic heart disease and other diseases of the circulatory system; Z86.73 Personal history of transient ischemic attack (TIA), and cerebral infarction without residual deficits; Z79.899 Other long term (current) drug therapy; Z79.82 Long term (current) use of aspirin; Z87.891 Personal history of nicotine dependence; F41.8 Other specified anxiety disorders; M19.90 Unspecified osteoarthritis, unspecified site; I70.0 Atherosclerosis of aorta; R79.89 Other specified abnormal findings of blood chemistry; Z79.891 Long term (current) use of opiate analgesic; Z87.11 Personal history of peptic ulcer disease
CPT/HCPCS: 36415; 70450; 71045; 73030; 73501; 74018; 83605; 83735; 84100; 84443; 84484; 85025; 93005; 97161; A4663; G0378; J2405; J3480; J3490; J7030; J8597; Q0169

== ENCOUNTER 2023-10-01 05:52 | Emergency (ER) | payer MEDICAID, OTHER ==
[~2023-10-01] VITALS: Ht 175.3 cm; Wt 111.6 kg
[~2023-10-01 05:52] MED LIST changes: +AMIT50TA3 PO; +CARB100C9 PO; -PROMETHAZINE VC PO; +VALA100026 PO
[2023-10-01] MEDS ORDERED: HYDR50TA62 PO (06:15)
[2023-10-01] MEDS ORDERED: DICL100G31 TP (06:15)
[2023-10-01] MEDS ORDERED: HYDROCODONE/APAP 10-325 MG TABLET ONE (07:26)
[2023-10-01] MEDS: HYDROCODONE/APAP 10-325 MG TABLET PO ONE (07:27)
[2023-10-01] MEDS ORDERED: HYDR-3980 PO (08:22)
[2023-10-01 08:43] VITALS: BP 126/75; O2SAT 95
== END 2023-10-01 08:43 | disposition home or self-care (01) ==
LOC: ER 05:54
DX: S09.8XXA Other specified injuries of head, initial encounter (principal); M19.09 Primary osteoarthritis, other specified site; K76.0 Fatty (change of) liver, not elsewhere classified; M79.7 Fibromyalgia; J40 Bronchitis, not specified as acute or chronic; F17.200 Nicotine dependence, unspecified, uncomplicated; Z79.899 Other long term (current) drug therapy; Z79.82 Long term (current) use of aspirin; Z88.1 Allergy status to other antibiotic agents; W18.39XA Other fall on same level, initial encounter; Y93.89 Activity, other specified; Y92.89 Other specified places as the place of occurrence of the external cause; Y99.8 Other external cause status
CPT/HCPCS: 70450; 72125; A4606; A4663

== ENCOUNTER 2023-12-08 16:48 | Inpatient (IN) | payer MEDICAID, MEDICARE, OTHER ==
[~2023-12-08] VITALS: Ht 175.3 cm; Wt 107.0 kg
[~2023-12-08 16:48] MED LIST changes: -AMIT50TA3 PO; -CARB100C9 PO; +DICL100G31 TP; +HYDR-3980 PO; +HYDR50TA62 PO; -TIZA2CAP7 PO; -TIZA4TAB5 PO; -VALA100026 PO
[2023-12-08] MEDS: DEXAMETHASONE SOD PHOSPHATE 4 MG INJ IV ONE (17:30)
[2023-12-08] MEDS: IV NORMAL SALINE 1000 ML BAG IV ONE (17:30)
[2023-12-08] MEDS: CEFEPIME HCL 2 G in IV DEXTROSE 5% 100 ML IV ONE (17:50)
[2023-12-08 18:04] LABS: BASOPHILS # (AUTO) 0.1 K/UL (0.0-0.2); BASOPHILS % (AUTO) 0.3 % (0.0-2.0); EOSINOPHILS # (AUTO) 0.2 K/uL (0.0-0.7); HEMATOCRIT 36.9 % (31.2-41.9); HEMOGLOBIN 12.4 g/dL (10.9-14.3); LYMPHOCYTES # (AUTO) 2.4 K/uL (0.8-4.8); LYMPHOCYTES % (AUTO) 13.6 % (20.5-51.5); MEAN CORPUSCULAR HEMOGLOBIN 30.2 uug (24.7-32.8); MEAN CORPUSCULAR HGB CONC 34 g/dL (32.3-35.6); MEAN CORPUSCULAR VOLUME 89.7 fL (75.5-95.3); MONOCYTES # (AUTO) 1.3 K/uL (0.1-1.30); MONOCYTES % (AUTO) 7.5 % (0.0-11.0); NEUTROPHILS # (AUTO) 13.9 K/uL (1.8-8.9); NEUTROPHILS % (AUTO) 77.6 % (38.5-71.5); PLATELET COUNT (AUTO) 340 K/uL (179-408); RED BLOOD CELL COUNT(AUTO) 4.12 MIL/uL (3.63-4.92); WHITE BLOOD COUNT (AUTO) 17.9 K/uL (3.8-11.8)
[2023-12-08 18:14] LABS: CARBON DIOXIDE 29 mmol/L (21-32); CHLORIDE 98 mmol/L (98-107); CREATININE 0.9 mg/dL (0.6-1.3); DIFFERENTIAL COMMENT 1; GLUCOSE 103 mg/dL (74-106); SODIUM SERUM 135 mmol/L (136-145); UREA NITROGEN, BLOOD 15 mg/dL (7-18)
[2023-12-08 18:25] LABS: POTASSIUM 4.3 mmol/L (3.5-5.1)
[2023-12-08 18:27] LABS: ALANINE AMINOTRANSFERASE 14 U/L (14-59); ALBUMIN 2.9 g/dL (3.4-5.0); ALKALINE PHOSPHATASE 82 U/L (50-136); ASPARTATE AMINOTRANSFERASE 13 U/L (15-37); BILIRUBIN,DIRECT 0.2 mg/dL (0.0-0.2); BILIRUBIN,TOTAL 0.7 mg/dL (0.2-1.0); NT-PRO BNP 468 pg/mL (0-125); TOTAL PROTEIN, SERUM 7.7 g/dL (6.4-8.2)
[2023-12-08 18:28] LABS: ABG BASE EXCESS 2.2 mmol/L (-2.0-2.0); ABG HCO3 27.3 mmol/L (22.0-26.0); ABG PCO2 44.5 mmHg (35.0-48.0); ABG PH 7.406 (7.340-7.440); ABG SITE RIGHT RADIAL; ABG TOTAL HEMOGLOBIN 12.7 G/dL (12.0-16.0); AaDO2 93.9 mmHg; COHb 0.8 % (0.0-3.9); MetHb 0.3 % (0.0-1.5); O2Hb 92.9 % (94.0-97.0)
[2023-12-08] MEDS: VANCOMYCIN IV 1,000 MG in IV DEXTROSE 5% 250 ML IV ONE (18:30)
[2023-12-08] MEDS ORDERED: VANCOMYCIN IV 200 ML ONE (19:04)
[2023-12-08] MEDS ORDERED: CEFEPIME HCL 1 G VIAL ONE (19:05)
[2023-12-08] MEDS ORDERED: AZITHROMYCIN 250 MG TABLET ONE ×2 (19:05→19:22)
[2023-12-08] MEDS ORDERED: ACETAMINOPHEN 500 MG TABLET ONE (19:06)
[2023-12-08] MEDS ORDERED: NAPROXEN 500 MG TABLET ONE (19:06)
[2023-12-08] MEDS: NAPROXEN 500 MG TABLET PO ONE (19:12)
[2023-12-08] MEDS: ACETAMINOPHEN 500 MG TABLET PO ONE (19:12)
[2023-12-08] MEDS: AZITHROMYCIN 250 MG TABLET PO ONE (19:12)
[2023-12-08] MEDS ORDERED: DEXAMETHASONE SOD PHOSPHATE 10 MG INJ ONE (19:22)
[2023-12-08 20:15] LABS: *BILIRUBIN,URIN NEGATIVE (NEGATIVE); *BLOOD, URINE NEGATIVE (NEGATIVE); *CLARITY,URINE CLEAR (CLEAR); *COLOR,URINE YELLOW (YELLOW); *KETONES,URINE NEGATIVE (NEGATIVE); *PROTEIN,URINE NEGATIVE (NEGATIVE); *UROBILINOGEN,URINE 0.2 E.U./dl (NORMAL); LEUKOCYTE ESTERASE ,URINE NEGATIVE (NEGATIVE); NITRITE, URINE NEGATIVE (NEGATIVE); UGLUCOSE NEGATIVE (NEGATIVE)
[2023-12-09] VITALS (8 sets, daily range): BP systolic 95–115; BP diastolic 45–61; TEMP 97.6–98.5; O2SAT 94–99
[2023-12-09] MEDS ORDERED: ONDANSETRON 4 MG/2 ML VIAL IV PRN (01:15)
[2023-12-09] MEDS ORDERED: REMEDY ESSENTIAL ZINC PASTE 113 GM TP PRN (01:15)
[2023-12-09] MEDS ORDERED: MECLIZINE HCL 25 MG TABLET PO PRN (01:30)
[2023-12-09] MEDS ORDERED: ALBUTEROL SULFATE 8 GM HFA.AER.AD IH PRN (01:30)
[2023-12-09] MEDS: ENOXAPARIN SODIUM 40 MG/0.4 ML DISP.SYRIN SQ SCH (02:00)
[2023-12-09 06:57] LABS: BASOPHILS % (AUTO) 0.1 % (0.0-2.0); HEMATOCRIT 31.5 % (31.2-41.9); HEMOGLOBIN 10.8 g/dL (10.9-14.3); LYMPHOCYTES # (AUTO) 1.2 K/uL (0.8-4.8); LYMPHOCYTES % (AUTO) 8.9 % (20.5-51.5); MEAN CORPUSCULAR HEMOGLOBIN 30.4 uug (24.7-32.8); MEAN CORPUSCULAR HGB CONC 34 g/dL (32.3-35.6); MEAN CORPUSCULAR VOLUME 88.9 fL (75.5-95.3); MONOCYTES # (AUTO) 0.4 K/uL (0.1-1.30); MONOCYTES % (AUTO) 3.1 % (0.0-11.0); NEUTROPHILS # (AUTO) 11.3 K/uL (1.8-8.9); NEUTROPHILS % (AUTO) 87.9 % (38.5-71.5); PLATELET COUNT (AUTO) 302 K/uL (179-408); RED BLOOD CELL COUNT(AUTO) 3.54 MIL/uL (3.63-4.92); RED CELL DISTRIBUTION WIDTH 13.6 % (12.3-17.7); WHITE BLOOD COUNT (AUTO) 12.9 K/uL (3.8-11.8)
[2023-12-09] MEDS: PANTOPRAZOLE SODIUM 40 MG TABLET.DR PO SCH (07:00)
[2023-12-09 07:06] LABS: DIFFERENTIAL COMMENT 1
[2023-12-09 07:14] LABS: ALBUMIN 2.5 g/dL (3.4-5.0); BILIRUBIN,DIRECT 0.2 mg/dL (0.0-0.2); BILIRUBIN,TOTAL 0.6 mg/dL (0.2-1.0); CALCIUM 8.7 mg/dL (8.5-10.1); CREATININE 0.8 mg/dL (0.6-1.3); MAGNESIUM 2.2 mg/dL (1.8-2.4); PHOSPHOROUS 4.6 mg/dL (2.5-4.9); POTASSIUM 4.3 mmol/L (3.5-5.1)
[2023-12-09 07:25] LABS: THYROID STIMULATING HORMONE 0.447 mIU/mL (0.358-3.740)
[2023-12-09] MEDS: ASPIRIN EC 81 MG TABLET.DR PO SCH ×2 (08:39→16:23)
[2023-12-09] MEDS: CULTURELLE CAPSULE PO SCH (08:40)
[2023-12-09] MEDS: FOLIC ACID 1 MG TABLET PO SCH (08:40)
[2023-12-09] MEDS: CHOLECALCIFEROL 1,000 UNIT TABLET PO SCH (08:40)
[2023-12-09] MEDS: OMEGA-3 FATTY ACIDS/FISH OIL CAPSULE PO SCH (08:40)
[2023-12-09] MEDS: DOCUSATE SODIUM 250 MG CAPSULE PO SCH (08:41)
[2023-12-09] MEDS: hydrOXYzine HCL 25 MG TABLET PO SCH ×2 (08:47→21:01)
[2023-12-09] MEDS: TRAZODONE 50 MG TABLET PO SCH ×2 (08:48→21:01)
[2023-12-09] MEDS: ATENOLOL 50 MG TABLET PO SCH (08:48)
[2023-12-09] MEDS ORDERED: VITAMIN E MIXED PO SCH (09:00)
[2023-12-09] MEDS ORDERED: [UNRECOGNIZED DRUG - OTHER] PO SCH (09:00)
[2023-12-09] MEDS ORDERED: ALBUTEROL SULFATE 2.5 MG/3 ML NEBU NEB PRN (09:00)
[2023-12-09] MEDS ORDERED: UBIDECARENONE PO SCH (09:00)
[2023-12-09] MEDS: CEFEPIME HCL 1 G in IV DEXTROSE 5% 50 ML IV SCH (09:22)
[2023-12-09] MEDS: HYDROCODONE/APAP 10-325 MG TABLET PO PRN ×2 (09:23→16:24)
[2023-12-09] MEDS: VANCOMYCIN HCL 1,500 MG in IV DEXTROSE 5% 500 ML IV SCH (09:42)
[2023-12-09] MEDS ORDERED: SUVO10TA PO (12:12)
[2023-12-09] MEDS ORDERED: CYCL10TA9 PO (12:12)
[2023-12-09] MEDS ORDERED: MULT-1119 PO (12:18)
[2023-12-09] MEDS ORDERED: HYDR25TA4 PO (12:18)
[2023-12-09] MEDS ORDERED: QUET100T PO (12:18)
[2023-12-09] MEDS ORDERED: DULO30CA2 PO (13:40)
[2023-12-09] MEDS: DIAZEPAM 5 MG TABLET PO PRN (17:32)
[2023-12-10] VITALS (8 sets, daily range): BP systolic 92–113; BP diastolic 41–61; TEMP 97.7–99.1; O2SAT 95–98
[2023-12-10] MEDS: ZOLPIDEM 5 MG TABLET PO PRN (02:30)
[2023-12-10] MEDS: ENOXAPARIN SODIUM 40 MG/0.4 ML DISP.SYRIN SQ SCH (08:32)
[2023-12-10 10:32] LABS: BASOPHILS % (AUTO) 0.3 % (0.0-2.0); EOSINOPHILS # (AUTO) 0.1 K/uL (0.0-0.7); EOSINOPHILS % (AUTO) 1.2 % (0.0-7.0); HEMATOCRIT 28.3 % (31.2-41.9); HEMOGLOBIN 9.6 g/dL (10.9-14.3); LYMPHOCYTES % (AUTO) 29.2 % (20.5-51.5); MEAN CORPUSCULAR HEMOGLOBIN 30.2 uug (24.7-32.8); MEAN CORPUSCULAR HGB CONC 34 g/dL (32.3-35.6); MEAN CORPUSCULAR VOLUME 89.4 fL (75.5-95.3); MONOCYTES # (AUTO) 0.8 K/uL (0.1-1.30); NEUTROPHILS # (AUTO) 6.4 K/uL (1.8-8.9); NEUTROPHILS % (AUTO) 61.3 % (38.5-71.5); PLATELET COUNT (AUTO) 314 K/uL (179-408); RED BLOOD CELL COUNT(AUTO) 3.17 MIL/uL (3.63-4.92); RED CELL DISTRIBUTION WIDTH 13.7 % (12.3-17.7); WHITE BLOOD COUNT (AUTO) 10.4 K/uL (3.8-11.8)
[2023-12-10 10:44] LABS: CALCIUM 8.9 mg/dL (8.5-10.1); CREATININE 0.7 mg/dL (0.6-1.3); POTASSIUM 3.5 mmol/L (3.5-5.1)
[2023-12-10 10:45] LABS: DIFFERENTIAL COMMENT 1
[2023-12-10] MEDS: BENZOCAINE/MENTH/CETYLPYRD LOZENGE MM PRN (17:07)
[2023-12-11] MEDS: PROMETHAZINE HCL 25 MG TABLET PO PRN (02:41)
[2023-12-11 05:10] VITALS: BP 122/59; TEMP 98.2; O2SAT 97
[2023-12-11 06:03] VITALS: O2SAT 97
[2023-12-11] MEDS: MIRALAX 17 GM POWD.PACK PO SCH (09:12)
[2023-12-11 10:41] VITALS: BP 122/79; TEMP 97.8; O2SAT 98
[2023-12-11 12:02] VITALS: BP 113/56; TEMP 98.5; O2SAT 95
[2023-12-11 14:28] LABS: BASOPHILS % (AUTO) 0.6 % (0.0-2.0); EOSINOPHILS # (AUTO) 0.2 K/uL (0.0-0.7); EOSINOPHILS % (AUTO) 2.7 % (0.0-7.0); HEMATOCRIT 29.7 % (31.2-41.9); HEMOGLOBIN 10.1 g/dL (10.9-14.3); LYMPHOCYTES # (AUTO) 2.2 K/uL (0.8-4.8); LYMPHOCYTES % (AUTO) 28.7 % (20.5-51.5); MEAN CORPUSCULAR HGB CONC 34 g/dL (32.3-35.6); MEAN CORPUSCULAR VOLUME 88.4 fL (75.5-95.3); MONOCYTES # (AUTO) 0.8 K/uL (0.1-1.30); MONOCYTES % (AUTO) 10.1 % (0.0-11.0); NEUTROPHILS # (AUTO) 4.5 K/uL (1.8-8.9); NEUTROPHILS % (AUTO) 57.9 % (38.5-71.5); PLATELET COUNT (AUTO) 388 K/uL (179-408); RED BLOOD CELL COUNT(AUTO) 3.36 MIL/uL (3.63-4.92); RED CELL DISTRIBUTION WIDTH 13.5 % (12.3-17.7); WHITE BLOOD COUNT (AUTO) 7.8 K/uL (3.8-11.8)
[2023-12-11 14:31] LABS: DIFFERENTIAL COMMENT 1
[2023-12-11 14:36] LABS: CREATININE 0.6 mg/dL (0.6-1.3); POTASSIUM 3.8 mmol/L (3.5-5.1)
[2023-12-11 14:54] LABS: CALCIUM 8.9 mg/dL (8.5-10.1)
[2023-12-11 16:24] VITALS: BP 115/67; TEMP 98.7; O2SAT 97
[2023-12-11 20:00] VITALS: BP 117/62; TEMP 98.5; O2SAT 94
[2023-12-12] VITALS (7 sets, daily range): BP systolic 100–164; BP diastolic 54–77; TEMP 98.4–98.9; O2SAT 96–99
[2023-12-12] MEDS: ACETAMINOPHEN 325 MG TABLET PO PRN (02:55)
[2023-12-12 06:20] LABS: BASOPHILS % (AUTO) 0.4 % (0.0-2.0); EOSINOPHILS # (AUTO) 0.2 K/uL (0.0-0.7); EOSINOPHILS % (AUTO) 2.7 % (0.0-7.0); HEMATOCRIT 30.6 % (31.2-41.9); HEMOGLOBIN 10.4 g/dL (10.9-14.3); LYMPHOCYTES % (AUTO) 35.5 % (20.5-51.5); MEAN CORPUSCULAR HGB CONC 34 g/dL (32.3-35.6); MEAN CORPUSCULAR VOLUME 88.4 fL (75.5-95.3); MONOCYTES # (AUTO) 0.8 K/uL (0.1-1.30); MONOCYTES % (AUTO) 9.1 % (0.0-11.0); NEUTROPHILS # (AUTO) 4.4 K/uL (1.8-8.9); NEUTROPHILS % (AUTO) 52.3 % (38.5-71.5); PLATELET COUNT (AUTO) 414 K/uL (179-408); RED BLOOD CELL COUNT(AUTO) 3.46 MIL/uL (3.63-4.92); RED CELL DISTRIBUTION WIDTH 13.7 % (12.3-17.7); WHITE BLOOD COUNT (AUTO) 8.3 K/uL (3.8-11.8)
[2023-12-12 06:51] LABS: DIFFERENTIAL COMMENT 1
[2023-12-12 06:54] LABS: CALCIUM 9.1 mg/dL (8.5-10.1); CREATININE 0.8 mg/dL (0.6-1.3); POTASSIUM 3.6 mmol/L (3.5-5.1)
[2023-12-12] MEDS: MAGNESIUM HYDROXIDE 30 ML LIQUID UDC PO PRN (09:02)
[2023-12-12] MEDS: MULTIVITAMINS,THERAPEUTIC TABLET PO SCH (13:25)
[2023-12-12] MEDS: QUETIAPINE FUMARATE 100 MG TABLET PO SCH (13:25)
[2023-12-12] MEDS: HYDROCHLOROTHIAZIDE 25 MG TABLET PO SCH (13:26)
[2023-12-12] MEDS ORDERED: hydrOXYzine HCL 25 MG TABLET ONE (21:12)
[2023-12-12] MEDS: GUAIFENESIN/DEXTROMETHORPHAN 5 ML UDC PO PRN (22:00)
[2023-12-13 07:20] LABS: BASOPHILS % (AUTO) 0.6 % (0.0-2.0); EOSINOPHILS # (AUTO) 0.3 K/uL (0.0-0.7); EOSINOPHILS % (AUTO) 3.3 % (0.0-7.0); HEMATOCRIT 28.6 % (31.2-41.9); HEMOGLOBIN 9.9 g/dL (10.9-14.3); LYMPHOCYTES # (AUTO) 2.6 K/uL (0.8-4.8); LYMPHOCYTES % (AUTO) 30.1 % (20.5-51.5); MEAN CORPUSCULAR HEMOGLOBIN 30.4 uug (24.7-32.8); MEAN CORPUSCULAR HGB CONC 35 g/dL (32.3-35.6); MEAN CORPUSCULAR VOLUME 88.1 fL (75.5-95.3); MONOCYTES # (AUTO) 0.8 K/uL (0.1-1.30); MONOCYTES % (AUTO) 9.7 % (0.0-11.0); NEUTROPHILS # (AUTO) 4.9 K/uL (1.8-8.9); NEUTROPHILS % (AUTO) 56.3 % (38.5-71.5); PLATELET COUNT (AUTO) 439 K/uL (179-408); RED BLOOD CELL COUNT(AUTO) 3.25 MIL/uL (3.63-4.92); RED CELL DISTRIBUTION WIDTH 13.3 % (12.3-17.7); WHITE BLOOD COUNT (AUTO) 8.7 K/uL (3.8-11.8)
[2023-12-13 07:25] LABS: CALCIUM 8.6 mg/dL (8.5-10.1); CREATININE 0.6 mg/dL (0.6-1.3); POTASSIUM 3.5 mmol/L (3.5-5.1)
[2023-12-13 07:27] LABS: DIFFERENTIAL COMMENT 1
[2023-12-13] MEDS ORDERED: BENZOCAINE/MENTH/CETYLPYRD LOZENGE MM PRN (08:00)
[2023-12-13 09:00] VITALS: BP 117/51; O2SAT 98
[2023-12-13] MEDS ORDERED: LEVO500T90 PO (10:09)
== END 2023-12-13 13:25 | disposition home health service (06) | DRG 720 ==
LOC: ER 16:49 → TELE3 12-09 00:31 → MEDSURG3 12-10 11:28
PROVIDERS: ADMIT Nurse Practitioner Family; ATTEND Nurse Practitioner Acute Care
PROC: 05HC33Z Insertion of Infusion Device into Left Basilic Vein, Percutaneous Approach (ICD-10-PCS; principal; 2023-12-09)
DX: A41.50 Gram-negative sepsis, unspecified (principal); J96.21 Acute and chronic respiratory failure with hypoxia; J15.69 Pneumonia due to other Gram-negative bacteria; E44.0 Moderate protein-calorie malnutrition; J15.9 Unspecified bacterial pneumonia; J91.8 Pleural effusion in other conditions classified elsewhere; E72.12 Methylenetetrahydrofolate reductase deficiency; E88.09 Other disorders of plasma-protein metabolism, not elsewhere classified; Z99.81 Dependence on supplemental oxygen; R65.20 Severe sepsis without septic shock; K50.90 Crohn's disease, unspecified, without complications; M06.9 Rheumatoid arthritis, unspecified; G89.4 Chronic pain syndrome; M79.7 Fibromyalgia; I10 Essential (primary) hypertension; R29.6 Repeated falls; M50.321 Other cervical disc degeneration at C4-C5 level; M48.02 Spinal stenosis, cervical region; F41.9 Anxiety disorder, unspecified; F32.A Depression, unspecified; S09.90XA Unspecified injury of head, initial encounter; W06.XXXA Fall from bed, initial encounter; Y92.032 Bedroom in apartment as the place of occurrence of the external cause; Z87.891 Personal history of nicotine dependence; Z88.6 Allergy status to analgesic agent; Z88.2 Allergy status to sulfonamides; Z87.11 Personal history of peptic ulcer disease; Z86.73 Personal history of transient ischemic attack (TIA), and cerebral infarction without residual deficits; Z91.041 Radiographic dye allergy status; Z74.09 Other reduced mobility; Z90.49 Acquired absence of other specified parts of digestive tract; Z79.899 Other long term (current) drug therapy
CPT/HCPCS: 36415; 36600; 70450; 71045; 71250; 72125; 73030; 83605; 83735; 84100; 84443; 84484; 85025; 85730; 87040; 93005; 94760; A9150; C1758; G0378; J0692; J1100; J1650; J3370; J3371; J3535; J7040; J7060; Q0144; Q0169

== ENCOUNTER 2024-02-26 15:31 | Emergency (ER) | payer MEDICARE ==
[~2024-02-26] VITALS: Ht 175.3 cm; Wt 106.6 kg
[~2024-02-26 15:31] MED LIST changes: +CYCL10TA9 PO; -DICL100G31 TP; +DULO30CA2 PO; -HYDR-4354 PO; +HYDR25TA4 PO; +LEVO500T90 PO; +MULT-1119 PO; +QUET100T PO; +SUVO10TA PO
[2024-02-26 16:45] LABS: BASOPHILS % (AUTO) 0.2 % (0.0-2.0); EOSINOPHILS # (AUTO) 1.3 K/uL (0.0-0.7); EOSINOPHILS % (AUTO) 17.6 % (0.0-7.0); HEMATOCRIT 38.2 % (31.2-41.9); HEMOGLOBIN 12.9 g/dL (10.9-14.3); LYMPHOCYTES # (AUTO) 2.2 K/uL (0.8-4.8); MEAN CORPUSCULAR HEMOGLOBIN 28.9 uug (24.7-32.8); MEAN CORPUSCULAR HGB CONC 34 g/dL (32.3-35.6); MEAN CORPUSCULAR VOLUME 85.7 fL (75.5-95.3); MONOCYTES # (AUTO) 0.4 K/uL (0.1-1.30); MONOCYTES % (AUTO) 4.9 % (0.0-11.0); NEUTROPHILS # (AUTO) 3.7 K/uL (1.8-8.9); NEUTROPHILS % (AUTO) 48.3 % (38.5-71.5); PLATELET COUNT (AUTO) 472 K/uL (179-408); RED BLOOD CELL COUNT(AUTO) 4.46 MIL/uL (3.63-4.92); RED CELL DISTRIBUTION WIDTH 14.6 % (12.3-17.7); WHITE BLOOD COUNT (AUTO) 7.6 K/uL (3.8-11.8)
[2024-02-26 16:46] LABS: DIFFERENTIAL COMMENT 1
[2024-02-26] MEDS ORDERED: KETOROLAC TROMETHAMINE 15 MG INJ ONE (16:57)
[2024-02-26] MEDS ORDERED: diphenhydrAMINE 50 MG/1 ML VIAL ONE (16:57)
[2024-02-26] MEDS ORDERED: PROCHLORPERAZINE EDISYLATE 10 MG/2 ML VIAL ONE (16:57)
[2024-02-26] MEDS ORDERED: MORPHINE SULFATE 2 MG/1 ML DISP.SYRIN ONE (16:58)
[2024-02-26 17:01] LABS: CALCIUM 9.7 mg/dL (8.5-10.1); CREATININE 1.2 mg/dL (0.6-1.3); POTASSIUM 4.3 mmol/L (3.5-5.1)
[2024-02-26] MEDS: diphenhydrAMINE 50 MG/1 ML VIAL IV ONE (17:10)
[2024-02-26] MEDS: IV NORMAL SALINE 1000 ML BAG IV ONE (17:10)
[2024-02-26] MEDS: PROCHLORPERAZINE EDISYLATE 10 MG/2 ML VIAL IV ONE (17:10)
[2024-02-26] MEDS: MORPHINE SULFATE 2 MG/1 ML DISP.SYRIN IV ONE (17:11)
[2024-02-26] MEDS: KETOROLAC TROMETHAMINE 15 MG INJ IVP ONE (17:11)
[2024-02-26 17:16] LABS: THYROID STIMULATING HORMONE 2.611 mIU/mL (0.358-3.740)
[2024-02-26 18:39] VITALS: BP 127/78; O2SAT 98
== END 2024-02-26 18:25 | disposition home or self-care (01) ==
LOC: ER 15:32
DX: G89.29 Other chronic pain (principal); M19.012 Primary osteoarthritis, left shoulder; M19.011 Primary osteoarthritis, right shoulder; M17.0 Bilateral primary osteoarthritis of knee; Z86.73 Personal history of transient ischemic attack (TIA), and cerebral infarction without residual deficits; Z98.890 Other specified postprocedural states; Z90.49 Acquired absence of other specified parts of digestive tract; Z79.891 Long term (current) use of opiate analgesic; Z79.82 Long term (current) use of aspirin; Z79.899 Other long term (current) drug therapy; Z60.2 Problems related to living alone; Z88.5 Allergy status to narcotic agent; Z88.1 Allergy status to other antibiotic agents; Z88.2 Allergy status to sulfonamides
CPT/HCPCS: 99285; 96374; 96375; 71045; 96361; 80048; 84443; 85025; 36415; 93005; 72170; 73030 ×2; 73564 ×2; J1200; J1885; J0780; J2270; J7040; A4606; A4663

== ENCOUNTER 2024-07-10 18:51 | Emergency (ER) | payer MEDICARE ==
[~2024-07-10] VITALS: Ht 175.3 cm; Wt 108.9 kg
[2024-07-10] MEDS: LIDOCAINE 2% (GLYDO= UROJET) 10 ML JELLY MM ONE (19:00)
[2024-07-10] MEDS ORDERED: IV NORMAL SALINE 1000 ML BAG IV ONE (19:00)
[2024-07-10] MEDS ORDERED: PROCHLORPERAZINE EDISYLATE 10 MG/2 ML VIAL IM ONE (19:45)
[2024-07-10] MEDS: HYDROCODONE/APAP 10-325 MG TABLET PO ONE (19:45)
[2024-07-10] MEDS ORDERED: MECLIZINE HCL 25 MG TABLET ONE (20:39)
[2024-07-10] MEDS ORDERED: HYDROCODONE/APAP 10-325 MG TABLET ONE (20:40)
[2024-07-10] MEDS: MECLIZINE HCL 25 MG TABLET PO ONE (20:45)
[2024-07-11] MEDS ORDERED: HYDROCODONE/APAP 10-325 MG TABLET ONE (00:52)
[2024-07-11] MEDS: HYDROCODONE/APAP 10-325 MG TABLET PO ONE (00:56)
[2024-07-11 01:54] VITALS: BP 146/78; O2SAT 99
== END 2024-07-11 01:54 | disposition home or self-care (01) ==
LOC: ER 18:51
DX: S09.90XA Unspecified injury of head, initial encounter (principal); M79.621 Pain in right upper arm; M54.2 Cervicalgia; M79.651 Pain in right thigh; R41.82 Altered mental status, unspecified; F41.9 Anxiety disorder, unspecified; G89.4 Chronic pain syndrome; Z79.82 Long term (current) use of aspirin; Z79.899 Other long term (current) drug therapy; Z86.73 Personal history of transient ischemic attack (TIA), and cerebral infarction without residual deficits; Z87.891 Personal history of nicotine dependence; Z90.49 Acquired absence of other specified parts of digestive tract; Z88.2 Allergy status to sulfonamides; Z88.5 Allergy status to narcotic agent; Z88.6 Allergy status to analgesic agent; Z88.7 Allergy status to serum and vaccine; W18.30XA Fall on same level, unspecified, initial encounter; X58.XXXA Exposure to other specified factors, initial encounter; Y93.89 Activity, other specified; Y92.89 Other specified places as the place of occurrence of the external cause; Y99.8 Other external cause status
CPT/HCPCS: 70450; 72125; 73030; 73060; 73551; 73590; 73630; A4606; A4663; J8597

== ENCOUNTER 2025-06-06 07:15 | Emergency (ER) | payer MEDICARE ==
[~2025-06-06] VITALS: Ht 175.3 cm; Wt 108.0 kg
[~2025-06-06 07:15] MED LIST changes: +CYCL10TA24 PO; -CYCL10TA9 PO; +LEVO-43 PO; -LEVO500T90 PO; -MECL-159 PO; +[UNRECOGNIZED DRUG - CODE] PO
[2025-06-06] MEDS ORDERED: HYDROCODONE/APAP 5-325MG TABLET ONE (08:05)
[2025-06-06] MEDS: HYDROCODONE/APAP 5-325MG TABLET PO ONE (08:10)
[2025-06-06 09:56] LABS: PLATELET COUNT (AUTO) 341 K/uL (179-408); RED BLOOD CELL COUNT(AUTO) 4.44 MIL/uL (3.63-4.92); RED CELL DISTRIBUTION WIDTH 14.0 % (12.3-17.7); WHITE BLOOD COUNT (AUTO) 7.2 K/uL (3.8-11.8)
[2025-06-06] MEDS ORDERED: MORPHINE SULFATE 2 MG/1 ML DISP.SYRIN ONE ×2 (10:02→12:04)
[2025-06-06] MEDS ORDERED: diphenhydrAMINE 50 MG/1 ML VIAL ONE (10:02)
[2025-06-06 10:03] LABS: CREATININE 0.9 mg/dL (0.6-1.3); SODIUM SERUM 139.0 mmol/L (136-145); UREA NITROGEN, BLOOD 16.0 mg/dL (7-18)
[2025-06-06 10:05] LABS: *BILIRUBIN,URIN NEGATIVE (NEGATIVE); *BLOOD, URINE NEGATIVE (NEGATIVE); *CLARITY,URINE CLEAR (CLEAR); *COLOR,URINE YELLOW (YELLOW); *KETONES,URINE NEGATIVE (NEGATIVE); *PROTEIN,URINE NEGATIVE (NEGATIVE); *UROBILINOGEN,URINE 0.2 E.U./dl (NORMAL); LEUKOCYTE ESTERASE ,URINE NEGATIVE (NEGATIVE); NITRITE, URINE NEGATIVE (NEGATIVE); UGLUCOSE NEGATIVE (NEGATIVE)
[2025-06-06] MEDS: diphenhydrAMINE 50 MG/1 ML VIAL IV ONE (10:08)
[2025-06-06] MEDS: MORPHINE SULFATE 2 MG/1 ML DISP.SYRIN IV ONE ×2 (10:08→12:09)
[2025-06-06 10:09] LABS: ASPARTATE AMINOTRANSFERASE 21.0 U/L (15-37); TOTAL PROTEIN, SERUM 8.1 g/dL (6.4-8.2)
[2025-06-06] MEDS ORDERED: PROCHLORPERAZINE EDISYLATE 10 MG/2 ML VIAL ONE (10:15)
[2025-06-06] MEDS: PROCHLORPERAZINE EDISYLATE 10 MG/2 ML VIAL IV ONE (10:21)
[2025-06-06] MEDS ORDERED: HYDROCODONE/APAP 10-325 MG TABLET ONE (13:01)
[2025-06-06] MEDS: HYDROCODONE/APAP 10-325 MG TABLET PO ONE (13:05)
[2025-06-06 18:00] VITALS: BP 123/76; O2SAT 97
== END 2025-06-06 19:21 | disposition short-term general hospital (02) ==
LOC: ER 07:15
DX: M54.59 Other low back pain (principal); F17.200 Nicotine dependence, unspecified, uncomplicated; F41.9 Anxiety disorder, unspecified; G89.29 Other chronic pain; I49.1 Atrial premature depolarization; L03.119 Cellulitis of unspecified part of limb; M06.9 Rheumatoid arthritis, unspecified; M17.0 Bilateral primary osteoarthritis of knee; M19.012 Primary osteoarthritis, left shoulder; Z79.82 Long term (current) use of aspirin; Z79.899 Other long term (current) drug therapy; Z87.11 Personal history of peptic ulcer disease; Z88.2 Allergy status to sulfonamides; Z88.5 Allergy status to narcotic agent; Z88.6 Allergy status to analgesic agent; Z88.7 Allergy status to serum and vaccine; Z90.49 Acquired absence of other specified parts of digestive tract; Z91.041 Radiographic dye allergy status; Z99.81 Dependence on supplemental oxygen
CPT/HCPCS: 99285; 73200; 96374; 96375; 80076; 80048; 81003; 85025; 85379; 84484 ×2; 36415; 73020; 73700; 72192; 93005 ×2; 96376; J1200; J0780; J2270 ×2; A4606; A4663